=== PATIENT | female | born 1960 | race Caucasian/White ===

== ENCOUNTER 2016-11-10 12:20 | Emergency (ER) | payer OTHER ==
--- NOTE | 2016-11-10 12:49 | ERPHSYRPT ---
- History of Present Illness Time Seen by Provider: 11/10/16 12:41 Source: patient Exam Limitations: no limitations Patient Subjective Stated Complaint: pt states she began having right groin pain that started on 11/09/16. pt denies any injury. Triage Nursing Assessment: pt pink, warm, dry. pt able to ambulated and transfer with help. no swelling noted to right groin. Physician History: Patient with history of chronic degenerative disc disease who states that she has been on [place] in the past arrives with complaint of pain in her right groin between the hip and the pelvic bone symptoms since yesterday. She denies any new injuries. She does state that she has had similar pain in the past and had received an injection in her back which seemed to have helped her. patient has no other complaints no nausea no fevers no urinary symptoms. Past medical history includes myocardial infarction atherosclerotic coronary artery disease, COPD, left bundle branch block, hyperlipidemia, pneumonia, anxiety, high blood pressure, depression, anxiety Past surgical history includes cardiac catheter, cardiac stents, , thyroidectomy Timing/Duration: yesterday Severity: moderate Modifying Factors: Improves With: other (worse with standing) Associated Symptoms: No nausea, No vomiting, No abdominal pain, No shortness of breath, No heartburn, No diaphoresis, No cough, No chills, No chest pain, No fever, No headaches, No loss of appetite, No malaise, No rash, No syncope, No seizure, No weakness Allergies/Adverse Reactions: bupropion HCl [From Wellbutrin] Allergy (Intermediate, Verified 11/10/16 12:29) Hives lisinopril Allergy (Mild, Verified 11/10/16 12:29) Cough Home Medications: Aspirin 81 mg PO DAILY 03/05/13 [History] Ticagrelor [Brilinta] 90 mg PO BID 03/05/13 [History] Cholecalciferol (Vitamin D3) [Vitamin D3] 2,000 unit PO DAILY 02/10/15 [History] Gabapentin 600 mg PO BID 02/10/15 [History] Levothyroxine Sodium 150 Mcg [Synthroid 150 Mcg] 150 mcg PO DAILY 02/10/15 [History] Multivitamin [Multivitamins] 1 each PO DAILY 02/10/15 [History] Cetirizine HCl [Zyrtec] 10 mg PO DAILY 12/20/15 [History] Venlafaxine HCl ER 75 mg [Effexor XR 75 MG] 75 mg PO BID 12/20/15 [History ] Bumetanide 1 mg [Bumex 1 mg] 1 mg PO .EVERYOTHERDAY 09/06/16 [History] Carvedilol [Coreg] 25 mg PO BID 09/06/16 [History] Hydrocodone Bit/Acetaminophen [[place] 7.5-325 Tablet] 1 each PO BIDPRN PRN [History] Meclizine HCl 25 mg [Antivert 25 mg] 25 mg PO TID 09/06/16 [History] [place]-3 Fatty Acids/Fish Oil [Fish Oil 1,000 mg Capsule] 1,000 mg PO BID [History] Pravastatin Sodium [Pravachol] 40 mg PO DAILY 09/06/16 [History] Alprazolam [Xanax] 1 mg PO QID PRN 11/10/16 [History] Hx Tetanus, Diphtheria Vaccination/Date Given: Yes (up to date) Hx Influenza Vaccination/Date Given: Yes Hx Pneumococcal Vaccination/Date Given: No Immunizations Up to Date: Yes - Review of Systems Constitutional: No Fever, No Chills Eyes: No Symptoms Ears, Nose, & Throat: No Symptoms Respiratory: No Cough, No Dyspnea Cardiac: No Chest Pain, No Edema, No Syncope Abdominal/Gastrointestinal: No Abdominal Pain, No Nausea, No Vomiting, No Diarrhea Genitourinary Symptoms: No Dysuria Musculoskeletal: Other (right groin pain medial to hip) Skin: No Rash Neurological: No Dizziness, No Focal Weakness, No Sensory Changes Psychological: No Symptoms Endocrine: No Symptoms All Other Systems: Reviewed and Negative - Past Medical History Pertinent Past Medical History: Yes Neurological History: No Pertinent History ENT History: No Pertinent History Cardiac History: Coronary Artery Disease, High Cholesterol, Hypertension Respiratory History: COPD, Pneumonia Endocrine Medical History: Hypothyroidism Musculoskeletal History: No Pertinent History GI Medical History: Cirrhosis History: No Pertinent History Psycho-Social History: Anxiety, Depression Female Reproductive Disorders: No Pertinent History Other Medical History: Graves disease - Past Surgical History Past Surgical History: Yes Neuro Surgical History: No Pertinent History Cardiac: Cardiac Catheterization, Cardiac Stent Respiratory: No Pertinent History Gastrointestinal: No Pertinent History Genitourinary: No Pertinent History Musculoskeletal: No Pertinent History Female Surgical History: Section Other Surgical History: thyroidectomy-80% gone, steriod injection right hip - Social History Smoking Status: Current every day smoker How long have you smoked: YRS Exposure to second hand smoke: Yes Drug Use: none Patient Lives Alone: No - Female History Hx Now: No - Nursing Vital Signs Nursing Vital Signs: Initial Vital Signs Temperature 97.7 F 11/10/16 12:24 Pulse Rate 79 11/10/16 12:24 Respiratory Rate 20 11/10/16 12:24 Blood Pressure 147/64 11/10/16 12:24 O2 Sat by Pulse Oximetry 97 11/10/16 12:24 Pain Scale Pain Intensity [] 10 Pain Intensity 10 - Physical Exam General Appearance: mild distress Eye Exam: PERRL/EOMI, eyes nml inspection Ears, Nose, Throat Exam: normal ENT inspection, TMs normal, pharynx normal, moist mucous membranes Neck Exam: normal inspection, non-tender, supple, full range of motion Respiratory Exam: normal breath sounds, lungs clear, No respiratory distress Cardiovascular Exam: regular rate/rhythm, normal heart sounds, normal peripheral pulses Gastrointestinal/Abdomen Exam: soft, normal bowel sounds, No tenderness, No mass Back Exam: normal inspection, normal range of motion, No CVA tenderness, No vertebral tenderness Extremity Exam: other (pain in right medial hip/groin area worse with movement of hip) Neurologic Exam: alert, oriented x 3, cooperative, normal mood/affect, nml cerebellar function, nml station & gait, sensation nml, No motor deficits Skin Exam: normal color, warm, dry, No rash Lymphatic Exam: No adenopathy SpO2 Interpretation: normal (97%) SpO2: 97 Oxygen Delivery: Room Air - Course Nursing assessment & vital signs reviewed: Yes - Radiology Exams Pelvis X-ray Interpretation: Discussed w/ radiologist, No Fracture, No Subluxation, Other (AP pelvis x-ray: Impression: 1. No acute pelvis fracture, dislocation, or focal bone destruction is seen, 3. Mild degenerative changes are seen at the level of the sympysis pubis on each side of midline) Ordered Tests: Active Orders 24 hr Category Date Time Status PELVIS (1 OR 2 VIEWS) Stat Exams 11/10/16 12:56 Completed Medication Summary Discontinued Medications Generic Name Dose Route Start Last Admin Trade Name Freq PRTamera Reason Stop Dose Admin Morphine Sulfate 4 mg 11/10/16 12:53 11/10/16 12:58 Morphine Sulfate 4 Mg Inj IM 11/10/16 12:54 4 mg STAT ONE Administration Morphine Sulfate Confirm 11/10/16 12:57 Morphine Sulfate 4 Mg Inj Administered 11/10/16 12:58 Dose 4 mg .ROUTE .STK-MED ONE - Progress Progress: improved Progress Note: 11/10/16 12:53 56-year-old white female with history of degenerative disc disease and chronic pain arrives with complaint of pain in her right hip medial to the hip and in the groin symptoms since yesterday. She denies any new injury patient states she is not currently on narcotic analgesia. She states she has received pain injections in the past secondary to her pain I have ordered AP pelvis on this lady I did pull up and inspect report it looks like the patient has received hydrocodone on a fairly regular a cyst last the prescription for this was on October 06, 2016 or 5/325 #60 she is also on Xanax 0.5 mg she received 120 of these on October 06, 2016 Will give patient an injection of morphine here. Will await x-ray of pelvis results. I have told the patient I will not be able to give her narcotics to take at home. She will need to get these from her family doctor if she feels that these are necessary. . 11/10/16 13:55 I discussed patient's case with Dr. pena. She tells me that she had offered the patient [place] several days ago but patient chose not to take these meds. Will go ahead and give patient [place] 5/325 #15 one orally twice a day as she had been taken before. She is to contact Dr. Pena for a follow-up appointment. - Departure Time of Disposition: 13:56 Departure Disposition: Home Clinical Impression: Right groin pain, History of degenerative joint disease Condition: Fair Critical Care Time: No Referrals: ANGEL PENA [Primary Care Provider] - Instructions: Chronic Pain -- Adult Additional Instructions: Return home. [place] 5/325 #15 one orally twice a day as needed for pain. Follow-up with Dr. pena call for an appointment Return for acute distress or for severe symptoms. Prescriptions: Hydrocodone Bit/Acetaminophen [[place] 5-325 Tablet] 1 tab PO BIDPRN PRN #15 tablet PRN Reason: Pain
[2016-11-10] MEDS ORDERED: MORPHINE SULFATE 4 MG INJ IM ONE (12:53)
[2016-11-10] MEDS ORDERED: MORPHINE SULFATE 4 MG INJ ONE (12:57)
--- NOTE | 2016-11-10 13:42 | XRAY ---
Exam: AP film of the pelvis from 11/10/2016. Comparison: None. Indication: Patient complains of pain medial to right hip that is worse with standing, no history of prior surgery. Findings: No acute fracture or dislocation is seen. The hip joint spaces are preserved and symmetric. No abnormality of either pubic ring is seen. I note mild degenerative changes at the level of the symphysis pubis. The sacroiliac joints appear unremarkable. No suspicious focal osseous lesion is seen. Impression: 1. No acute pelvis fracture, dislocation, or focal bone destruction is seen. 2. The hip joint spaces appear preserved and symmetric. The sacroiliac joints are unremarkable as well. 3. Mild degenerative changes are seen at the level of the symphysis pubis on each side of midline.
[2016-11-10 14:20] VITALS: BP 127/70; PULSE 87; O2SAT 100
== END 2016-11-10 14:20 | disposition home or self-care (01) ==
LOC: ED 12:20
DX: R10.9 Unspecified abdominal pain (principal); M19.90 Unspecified osteoarthritis, unspecified site; I25.2 Old myocardial infarction; I25.10 Atherosclerotic heart disease of native coronary artery without angina pectoris; J44.9 Chronic obstructive pulmonary disease, unspecified; E78.00 Pure hypercholesterolemia, unspecified; F41.9 Anxiety disorder, unspecified; I10 Essential (primary) hypertension; Z79.899 Other long term (current) drug therapy
CPT/HCPCS: 72170; 96372; 99283; J2270

== ENCOUNTER 2016-12-01 11:14 | Emergency (ER) | payer OTHER ==
[2016-12-01] MEDS ORDERED: solu-MEDROL 125 MG IV ONE (11:26)
[2016-12-01] MEDS ORDERED: DUONEB 0.5-3 MG/3 ml Neb IH ONE ×2 (11:26→11:31)
[2016-12-01] MEDS ORDERED: Sodium Chloride 0.9% 1000 ML 1,000 ML IV SCH (11:30)
--- NOTE | 2016-12-01 11:40 | ERPHSYRPT ---
- History of Present Illness Time Seen by Provider: 12/01/16 11:21 Source: patient, family () Physician History: CC: cough Hx: 56 y/o patient of Dr Valerio with cough, shortness of breath, sputum, chills for 2 weeks. She takes nebs and uses home oxygen. No fever. No chest pain. Not better so came to ER. Symptoms moderate. Timing/Duration: week(s) (2) Severity of Dyspnea-Max: moderate Severity of Dyspnea-Current: moderate Allergies/Adverse Reactions: bupropion HCl [From Wellbutrin] Allergy (Intermediate, Verified 12/01/16 11:45) Hives lisinopril Allergy (Mild, Verified 12/01/16 11:45) Cough Home Medications: Aspirin 81 mg PO DAILY 03/05/13 [History] Ticagrelor [Brilinta] 90 mg PO BID 03/05/13 [History] Cholecalciferol (Vitamin D3) [Vitamin D3] 2,000 unit PO DAILY 02/10/15 [History] Gabapentin 600 mg PO BID 02/10/15 [History] Levothyroxine Sodium 150 Mcg [Synthroid 150 Mcg] 150 mcg PO DAILY 02/10/15 [History] Cetirizine HCl [Zyrtec] 10 mg PO DAILY 12/20/15 [History] Venlafaxine HCl ER 75 mg [Effexor XR 75 MG] 75 mg PO BID 12/20/15 [History ] Bumetanide 1 mg [Bumex 1 mg] 1 mg PO .EVERYOTHERDAY 09/06/16 [History] Carvedilol [Coreg] 25 mg PO BID 09/06/16 [History] Hydrocodone Bit/Acetaminophen [[place] 7.5-325 Tablet] 1 each PO BIDPRN PRN [History] Meclizine HCl 25 mg [Antivert 25 mg] 25 mg PO TID 09/06/16 [History] Pravastatin Sodium [Pravachol] 40 mg PO DAILY 09/06/16 [History] Alprazolam [Xanax] 1 mg PO QID PRN 11/10/16 [History] Albuterol Sulfate [Proventil Hfa] 6.7 gm IH QIDPRN PRN 12/01/16 [History] Amlodipine Besylate 10 mg [Norvasc 10 MG] 10 mg PO DAILY 12/01/16 [History] Benzonatate [Tessalon Perle] 100 mg PO TIDPRN 12/01/16 [History] Clonidine HCl 0.1 mg [Catapres 0.1 MG] 0.1 mg PO TID 12/01/16 [History] [place]-3S/Dha/Epa/Fish Oil/D3 [Fish [place]ie-Xmete-6-Vit D Softgel] 1 each PO TID 04/18 [History] Hx Tetanus, Diphtheria Vaccination/Date Given: Yes (up to date) Hx Influenza Vaccination/Date Given: Yes Hx Pneumococcal Vaccination/Date Given: No - Review of Systems Constitutional: Chills, Malaise, No Fever Eyes: No Symptoms Ears, Nose, & Throat: No Symptoms Respiratory: Cough, Dyspnea Cardiac: No Chest Pain Abdominal/Gastrointestinal: No Abdominal Pain, No Nausea, No Vomiting Genitourinary Symptoms: No Dysuria Skin: No Rash Neurological: No Headache All Other Systems: Reviewed and Negative - Past Medical History Pertinent Past Medical History: Yes Neurological History: No Pertinent History ENT History: No Pertinent History Cardiac History: Coronary Artery Disease, High Cholesterol, Hypertension Respiratory History: COPD, Pneumonia Endocrine Medical History: Hypothyroidism Musculoskeletal History: No Pertinent History GI Medical History: Cirrhosis History: No Pertinent History Psycho-Social History: Anxiety, Depression Female Reproductive Disorders: No Pertinent History Other Medical History: Graves disease - Past Surgical History Past Surgical History: Yes Neuro Surgical History: No Pertinent History Cardiac: Cardiac Catheterization, Cardiac Stent Respiratory: No Pertinent History Gastrointestinal: No Pertinent History Genitourinary: No Pertinent History Musculoskeletal: No Pertinent History Female Surgical History: Section Other Surgical History: thyroidectomy-80% gone, steriod injection right hip - Social History Smoking Status: Current every day smoker How long have you smoked: YRS Exposure to second hand smoke: Yes Drug Use: none Patient Lives Alone: No - Female History Hx Now: No - Nursing Vital Signs Nursing Vital Signs: Initial Vital Signs Temperature 97.6 F 12/01/16 11:26 Pulse Rate 81 12/01/16 11:26 Respiratory Rate 22 12/01/16 11:26 Blood Pressure 154/93 12/01/16 11:26 O2 Sat by Pulse Oximetry 91 L 12/01/16 11:26 Pain Scale Pain Intensity 6 - Physical Exam General Appearance: alert Eye Exam: PERRL/EOMI Neck Exam: normal inspection, non-tender, supple Respiratory Exam: wheezing (mild) Cardiovascular/Chest Exam: regular rate/rhythm Abdominal/Gastrointestinal Exam: soft, No tenderness, No distention Extremity Exam: no calf tenderness Neurologic Exam: alert, oriented x 3, sensation nml, other (anxious), No motor deficits Skin Exam: warm, dry SpO2 Interpretation: O2 applied SpO2: 91 Oxygen Delivery: Room Air - Course Nursing assessment & vital signs reviewed: Yes EKG Interpreted by Me: RATE (74), Sinus Rhythm, NORMAL AXIS, NORMAL INTERVALS ( QTc 424), NORMAL QRS, NORMAL ST-T - Radiology Exams cxr X-ray Interpretation: Teleradiologist Report (stable nonacute chest) Ordered Tests: Active Orders 24 hr Category Date Time Status Party Host/Hostess STAT Care 12/01/16 11:27 Active Cath for Specimen-Straight STAT Care 12/01/16 11:27 Active EKG-ER Only STAT Care 12/01/16 11:26 Active IV Insertion STAT Care 12/01/16 11:26 Active Oxygen-ED Only NASAL CANNULA 2 lpm Care 12/01/16 11:26 Active Pulse Oximetry (ED) STAT Care 12/01/16 11:26 Active Rectal Temperature STAT Care 12/01/16 11:26 Active CHEST 1 VIEW (PORTABLE) Stat Exams 12/01/16 11:27 Completed BLOOD CULTURE Stat Lab 12/01/16 11:40 Received CBC W DIFF Stat Lab 12/01/16 11:35 Completed CMP Stat Lab 12/01/16 11:35 Completed CULTURE,SPUTUM Stat Lab 12/01/16 11:47 Ordered CULTURE,URINE Stat Lab 12/01/16 12:20 Received Lactic Acid Stat Lab 12/01/16 11:30 Completed UA W/ MICROSCOPIC Stat Lab 12/01/16 12:20 Completed VENOUS BLOOD GAS Stat Lab 12/01/16 11:30 Completed Respiratory Nebulizer STAT RT 12/01/16 11:27 Completed Respiratory Nebulizer STAT RT 12/01/16 12:21 Completed Medication Summary Generic Name Dose Route Start Last Admin Trade Name Freq PRN Reason Stop Dose Admin Doxycycline Hyclate 100 mg 12/01/16 13:28 Vibramycin 100 Mg PO 12/01/16 13:29 STAT ONE Sodium Chloride 1,000 mls @ 100 mls/hr 12/01/16 11:30 12/01/16 11:44 Sodium Chloride 0.9% 1000 Ml IV 12/31/16 11:29 100 mls/hr .Q10H JESICA Administration Discontinued Medications Generic Name Dose Route Start Last Admin Trade Name Mai PRN Reason Stop Dose Admin Albuterol Sulfate 2.5 mg 12/01/16 12:21 12/01/16 12:32 Proventil 2.5 Mg/3 Ml Neb IH 12/01/16 12:22 2.5 mg STAT ONE Administration Albuterol Sulfate Confirm 12/01/16 12:28 Proventil 2.5 Mg/3 Ml Neb Administered 12/01/16 12:29 Dose 2.5 mg IH .STK-MED ONE Albuterol/Ipratropium 3 ml 12/01/16 11:26 12/01/16 11:35 Duoneb 0.5-3 Mg/3 Ml Neb IH 12/01/16 11:27 3 ml STAT ONE Administration Albuterol/Ipratropium Confirm 12/01/16 11:31 Duoneb 0.5-3 Mg/3 Ml Neb Administered 12/01/16 11:32 Dose 3 ml IH .STK-MED ONE Methylprednisolone Sodium Succinate 125 mg 12/01/16 11:26 12/01/16 11:44 Solu-Medrol 125 Mg IV 12/01/16 11:27 125 mg STAT ONE Administration Methylprednisolone Sodium Succinate Confirm 12/01/16 11:41 Solu-Medrol 125 Mg Administered 12/01/16 11:42 Dose 125 mg .ROUTE .STK-MED ONE Potassium Bicarbonate 50 meq 12/01/16 12:14 12/01/16 12:26 K-Lyte 25 Meq PO 12/01/16 12:15 50 meq STAT ONE Administration Potassium Bicarbonate Confirm 12/01/16 12:24 K-Lyte 25 Meq Administered 12/01/16 12:25 Dose 50 meq .ROUTE .STK-MED ONE Lab/Rad Data: Laboratory Result Diagrams 12/01/16 11:35 12/01/16 11:35 Laboratory Results 12/01/16 12/01/16 12/01/16 Range/Units 12:20 11:35 11:35 WBC 7.4 (4.0-10.5) K/mm3 RBC 4.55 (4.1-5.4) M/mm3 Hgb 15.0 (12.0-16.0) gm/dl Hct 45.4 (35-47) % MCV 99.8 (78-100) fl MCH 33.0 H (26-32) pg MCHC 33.0 (32-36) g/dl RDW 14.6 H (11.5-14.0) % Plt Count 169 (150-450) K/mm3 MPV 10.8 H (6-9.5) fl Gran % 66.5 H (36.0-66.0) % Lymphocytes % 26.1 (24.0-44.0) % Monocytes % 5.4 (0.0-12.0) % Eosinophils % 1.7 (0.00-5.0) % Basophils % 0.3 (0.0-0.4) % Basophils # 0.02 (0-0.4) VBG pH (7.32-7.42) VBG pCO2 at Pat Temp (42-55) mm/Hg VBG pO2 at Pat Temp (25-40) mm/Hg VBG HCO3 (22-28) meq/L VBG O2 Sat (Aj) (95-100) VBG Base Excess (-2.0-2.0) VBG Hemoglobin VBG Carboxyhemoglobin (0.0-6.9) % T HGB POC Potassium (3.5-5.1) Sodium 146 H (136-145) mEq/L Potassium 3.1 L (3.5-5.1) mEq/L Chloride 105 (98-107) mEq/L Carbon Dioxide 35.3 H (21-32) mEq/L Anion Gap 8.8 (5-15) MEQ/L BUN 8 L (9-20) mg/dL Creatinine 0.97 (0.55-1.30) mg/dl Estimated GFR > 60 ML/MIN Glucose 140 H (70-110) MG/DL Lactic Acid (0.4-2.0) Calcium 9.6 (8.5-10.1) mg/dL Total Bilirubin 0.50 (0.2-1.0) mg/dL AST 17 (15-37) U/L ALT 26 (12-78) U/L Alkaline Phosphatase 90 (46-116) U/L Serum Total Protein 7.3 (6.4-8.2) gm/dL Albumin 3.7 (3.4-5.0) g/dL Ur Collection Type CATH Urine Color LT.YELLOW (YELLOW) Urine Appearance HAZY (CLEAR) Urine pH 8.0 (5-6) Ur Specific [place] 1.010 (1.005-1.025) Urine Protein NEGATIVE (Negative) Urine Ketones NEGATIVE (NEGATIVE) Urine Blood 5-10 (0-5) Franck/ul Urine Nitrite NEGATIVE (NEGATIVE) Urine Bilirubin NEGATIVE (NEGATIVE) Urine Urobilinogen 4 (0-1) mg/dL Ur Leukocyte Esterase NEGATIVE (NEGATIVE) Urine Microscopic RBC 0-2 (0-2) /HPF Urine Microscopic WBC 0-2 (0-5) /HPF Ur Epithelial Cells MODERATE (FEW) /HPF Urine Bacteria MODERATE (NEGATIVE) /HPF Urine Mucus SLIGHT (NEGATIVE) /HPF Urine Glucose NEGATIVE (NEGATIVE) mg/dL Specimen Received 12/01/16 1215 12/01/16 12/01/16 Range/Units 11:30 11:30 WBC (4.0-10.5) K/mm3 RBC (4.1-5.4) M/mm3 Hgb (12.0-16.0) gm/dl Hct (35-47) % MCV (78-100) fl MCH (26-32) pg MCHC (32-36) g/dl RDW (11.5-14.0) % Plt Count (150-450) K/mm3 MPV (6-9.5) fl Gran % (36.0-66.0) % Lymphocytes % (24.0-44.0) % Monocytes % (0.0-12.0) % Eosinophils % (0.00-5.0) % Basophils % (0.0-0.4) % Basophils # (0-0.4) VBG pH 7.43 H (7.32-7.42) VBG pCO2 at Pat Temp 58 H (42-55) mm/Hg VBG pO2 at Pat Temp 36 (25-40) mm/Hg VBG HCO3 38.5 H* (22-28) meq/L VBG O2 Sat (Aj) 79.2 L (95-100) VBG Base Excess 11.4 H (-2.0-2.0) VBG Hemoglobin 15.4 VBG Carboxyhemoglobin 4.7 (0.0-6.9) % T HGB POC Potassium 3.1 L (3.5-5.1) Sodium (136-145) mEq/L Potassium (3.5-5.1) mEq/L Chloride (98-107) mEq/L Carbon Dioxide (21-32) mEq/L Anion Gap (5-15) MEQ/L BUN (9-20) mg/dL Creatinine (0.55-1.30) mg/dl Estimated GFR ML/MIN Glucose (70-110) MG/DL Lactic Acid 1.2 (0.4-2.0) Calcium (8.5-10.1) mg/dL Total Bilirubin (0.2-1.0) mg/dL AST (15-37) U/L ALT (12-78) U/L Alkaline Phosphatase (46-116) U/L Serum Total Protein (6.4-8.2) gm/dL Albumin (3.4-5.0) g/dL Ur Collection Type Urine Color (YELLOW) Urine Appearance (CLEAR) Urine pH (5-6) Ur Specific [place] (1.005-1.025) Urine Protein (Negative) Urine Ketones (NEGATIVE) Urine Blood (0-5) Franck/ul Urine Nitrite (NEGATIVE) Urine Bilirubin (NEGATIVE) Urine Urobilinogen (0-1) mg/dL Ur Leukocyte Esterase (NEGATIVE) Urine Microscopic RBC (0-2) /HPF Urine Microscopic WBC (0-5) /HPF Ur Epithelial Cells (FEW) /HPF Urine Bacteria (NEGATIVE) /HPF Urine Mucus (NEGATIVE) /HPF Urine Glucose (NEGATIVE) mg/dL Specimen Received - Progress Progress Note: 12/01/16 13:28 Pt breathing is stable. Tests reassuring. She ambulated in hallway with O2 #l which she uses at home and sat 93-94%. She wants to go home. Warned against smoking. She and are upset with each other. She wants to rest but has to care for grandkids. Advised no babysitting over the weekend and she needs to rest. Counseled pt/family regarding: lab results, diagnosis, need for follow-up, rad results, smoking cessation - Departure Time of Disposition: 13:29 Departure Disposition: Home Clinical Impression: COPD with exacerbation, Situational stress Condition: Fair Critical Care Time: No Referrals: ANGEL VALERIO [Primary Care Provider] - Instructions: Chronic Obstructive Pulmonary Disease, Quit Smoking Additional Instructions: Use your oxygen as already directed. Use your nebulizer every 4 hours. No babysitting this weekend as you need to rest. Rx doxycycline. Rx prednisone. Follow up with Dr Valerio Sunday at 9:45. Return for worsening or concerns. Avoid smoke exposure. Prescriptions: Doxycycline Hyclate [Vibramycin] 1 cap PO BID #20 capsule Prednisone 20 mg [Deltasone 20 mg] 2 tab PO DAILY #10 tablet
[2016-12-01] MEDS ORDERED: Sodium Chloride 0.9% 1000 ML 1,000 ML ONE (11:41)
[2016-12-01] MEDS ORDERED: solu-MEDROL 125 MG ONE (11:41)
[2016-12-01 11:42] LABS: VBG BASE EXCESS 11.4 (-2.0-2.0); VBG CARBOXYHEMOGLOBIN 4.7 % T HGB (0.0-6.9); VBG HCO3- 38.5 meq/L (22-28); VBG HEMOGLOBIN 15.4; VBG O2 SATURATION 79.2 (95-100); VBG POTASSIUM 3.1 (3.5-5.1); VBG pH 7.43 (7.32-7.42)
[2016-12-01 11:56] LABS: BASOPHIL % 0.3 % (0.0-0.4); Eosinophil % 1.7 % (0.00-5.0); Granulocytes % 66.5 % (36.0-66.0); Lymphocytes % 26.1 % (24.0-44.0); Mean Cell Volume 99.8 fl (78-100); Mean Platelet Volume 10.8 fl (6-9.5); Monocytes % 5.4 % (0.0-12.0); Platelet Count 169 K/mm3 (150-450); Red Blood Count 4.55 M/mm3 (4.1-5.4); Red Cell Distribution Width 14.6 % (11.5-14.0); White Blood Count 7.4 K/mm3 (4.0-10.5)
[2016-12-01 12:10] LABS: ALBUMIN 3.7 g/dL (3.4-5.0); ALKALINE PHOSPHATASE 90 U/L (46-116); ANION GAP 8.8 MEQ/L (5-15); BLOOD UREA NITROGEN 8 mg/dL (9-20); CHLORIDE 105 mEq/L (98-107); Carbon Dioxide 35.3 mEq/L (21-32); Glucose 140 MG/DL (70-110); Potassium 3.1 mEq/L (3.5-5.1); SGOT/AST 17 U/L (15-37); SGPT/ALT 26 U/L (12-78); SODIUM 146 mEq/L (136-145); Total Protein 7.3 gm/dL (6.4-8.2)
[2016-12-01] MEDS ORDERED: K-LYTE 25 MEQ PO ONE (12:14)
--- NOTE | 2016-12-01 12:18 | XRAY ---
Indication: Cough and short of breath. Comparison: December 20, 2015. Portable chest again clear with incidental calcified granulomas. Heart is not enlarged. Vascularity normal. Bony thorax intact again with mild degenerative changes. Impression: Stable nonacute chest with chronic features.
[2016-12-01] MEDS ORDERED: PROVENTIL 2.5 MG/3 ML NEB IH ONE ×2 (12:21→12:28)
[2016-12-01] MEDS ORDERED: K-LYTE 25 MEQ ONE (12:24)
[2016-12-01 12:35] LABS: Collection Type CATH
[2016-12-01 12:36] LABS: ADD URINE CULTURE? YES (NO); Bacteria MODERATE /HPF (NEGATIVE); Bilirubin NEGATIVE (NEGATIVE); COMPLETE URINE MICROSCOPIC? YES; Epithelial Cells MODERATE /HPF (FEW); Glucose NEGATIVE (NEGATIVE); Leukocyte Esterase NEGATIVE (NEGATIVE); Mucus SLIGHT /HPF (NEGATIVE); WBC 0-2 /HPF (0-5)
[2016-12-01] MEDS ORDERED: Vibramycin 100 MG PO ONE (13:28)
[2016-12-01] MEDS ORDERED: Vibramycin 100 MG ONE (13:37)
[2016-12-01 14:15] VITALS: BP 163/88; PULSE 78; O2SAT 95
== END 2016-12-01 14:16 | disposition home or self-care (01) ==
LOC: ED 11:14
DX: J44.1 Chronic obstructive pulmonary disease with (acute) exacerbation (principal); F43.9 Reaction to severe stress, unspecified; R05 Cough; R53.81 Other malaise; R06.00 Dyspnea, unspecified; F41.9 Anxiety disorder, unspecified; F32.9 Major depressive disorder, single episode, unspecified
CPT/HCPCS: 36000; 36415; 71010; 80053; 81000; 82805; 83605; 85025; 87040; 87070; 87077; 87086; 93005; 93041; 94640; 96360; 96374; 99284; J2930; P9612; A9270-GY